=== PATIENT | female | born 1965 | race Caucasian/White ===

== ENCOUNTER → 2016-10-07 | Outpatient (CLI) | payer BC ==
[~2016-10-07] MED LIST: ALEN1TAB3; ASPI-84; ASPI-983 PO; ASPI325T32 PO; ASPI325T4 PO; ATOR10TA PO; ATOR10TA66 PO; ATOR40TA70 PO; CALC600T25; CEPH-507 PO; CLOP75TA28 PO; CLOP75TA69 PO; CPR500T PO; CYCL10TA9 PO; DIPH25CA79 PO; DIPH25TA82 PO; EZET10TA5 PO; FEXO-14 PO; FEXO-46 PO; FISH1200; FLUT16SP22 NS; FRSM20T PO; FURO20TA4; FURO20TA4 PO; HCT25T; HYDR-3720 PO; HYDR1CAP2 PO; IMIP10TA3; ISOS30TA3 PO; KCL10CCR; KCL10CCR PO; LISI-556 PO; LISI5TAB14 PO; METH500T7 PO; METO-270 PO; MSL400TEC; MTP25TSR; MTP25TSR PO; NAPR-243 PO; NFBIOT1000 PO; NITR0.4T SL; OXYC-12 PO; PANT40TA3 PO; PNT40TEC PO; POLY255P PO; POTA10TA14 PO; SIMV40TA2; SULF1TAB38 PO; TOLTA4; WRF2.5T
[2016-10-07 16:51] LABS: BASOPHILS # (AUTO) 0.1 10^3/uL (0.0-0.1); BASOPHILS % (AUTO) 1 % (0-10); EOSINOPHILS # (AUTO) 0.2 10^3/uL (0.0-0.3); EOSINOPHILS % (AUTO) 2 % (0-10); LYMPHOCYTES # (AUTO) 3.4 X 10^3 (1.0-4.0); LYMPHOCYTES % (AUTO) 34 % (12-44); MEAN CORPUSCULAR HEMOGLOBIN 29 PG (25-34); MEAN CORPUSCULAR HGB CONC 34 G/DL (32-36); MEAN CORPUSCULAR VOLUME 86 FL (80-99); MEAN PLATELET VOLUME 9.8 FL (7.4-10.4); MONOCYTES # (AUTO) 0.8 X 10^3 (0.0-1.0); MONOCYTES % (AUTO) 8 % (0-12); NEUTROPHILS # (AUTO) 5.5 X 10^3 (1.8-7.8); NEUTROPHILS % (AUTO) 55 % (42-75); PLATELET COUNT 255 10^3/uL (130-400); RED BLOOD COUNT 5.22 10^6/uL (4.35-5.85); RED CELL DISTRIBUTION WIDTH 12.9 % (10.0-14.5)
[2016-10-07 17:08] LABS: ALANINE AMINOTRANSFERASE 20 U/L (0-55); ALBUMIN 4.4 G/DL (3.2-4.5); ANION GAP 11 MMOL/L (5-14); ASPARTATE AMINO TRANSFERASE 14 U/L (5-34); BILIRUBIN,TOTAL 0.9 MG/DL (0.1-1.0); BLOOD UREA NITROGEN 11 MG/DL (7-18); BUN/CREATININE RATIO 15; CALCIUM 9.6 MG/DL (8.5-10.1); CARBON DIOXIDE 25 MMOL/L (21-32); CHLORIDE 106 MMOL/L (98-107); CREATININE SERUM 0.72 MG/DL (0.60-1.30); GFR ESTIMATED > 60; GLUCOSE 102 MG/DL (70-105); SODIUM 142 MMOL/L (135-145); TOTAL PROTEIN 7.6 G/DL (6.4-8.2)
== END ==
LOC: LAB 16:32
PROVIDERS: ATTEND Family Medicine
DX: R07.9 Chest pain, unspecified (principal)
CPT/HCPCS: 36415; 80053; 84484; 85025; 93005

== ENCOUNTER → 2016-10-11 | Outpatient (CLI) | payer BC ==
--- NOTE | 2016-10-12 11:22 | ECHOCARDIOGRAPHY REPORT ---
PROCEDURE PHYSICIAN: NATHANIEL GORDILLO DATE OF PROCEDURE: 10/11/2016 TWO DIMENSIONAL ECHOCARDIOGRAM REPORT PRIMARY PHYSICIAN: OTHER PHYSICIAN: REFERRING PHYSICIAN: Dr. Alfaro ORDERING PHYSICIAN: INDICATION FOR THE PROCEDURE: Valvular heart disease, coronary artery disease MEASUREMENTS DERIVED VALUES LV DIAMETER (LAX) NORMALS NORMALS Diastolic 6.1 (3.6-5.2) Eject. Fract. 60% (60%+/-6%) Systolic (2.3-3.9) Diastolic Vol. % Shortening (0.22-0.42) Systolic Vol. Aortic Root IVS THICKNESS Diastolic 1. (0.6-1.1) LVPW THICKNESS Diastolic 1. (0.6-1.1) LA DIAMETER Systolic 4.1 (2.1-3.7) FINDINGS: 1. Technical quality is good. 2. The left ventricle is prominent. Slightly more prominent compared to the study of October 2015. Systolic function is preserved. Estimated ejection fraction 60%. 3. The left atrium is mildly dilated. No clot or thrombus were seen within the left atrium. 4. The right atrium and right ventricle are normal in size. No clot or thrombus were seen within the right side. 5. Mitral valve is normal in morphology with severe mitral regurgitation noted by color Doppler flow. No mitral valve prolapse. No mitral valve stenosis. 6. Aortic valve is trileaflet with normal opening and closing pattern. No significant aortic stenosis or regurgitation was seen. 7. Tricuspid valve is normal in morphology with mild tricuspid regurgitation noted by color Doppler flow. Doppler across tricuspid valve estimated pulmonary artery pressure of 28+ right atrial pressure. 8. Pulmonic valve is functioning normally. 9. No pericardial effusion. CONCLUSION: 1. Prominent left ventricle, slight deterioration compared to the study of October 2015 with preserved systolic function. Estimated ejection fraction 60%. 2. Mildly dilated left atrium. 3. Severe mitral regurgitation, mild tricuspid regurgitation. 4. Estimated pulmonary artery pressure of 35 mmHg. Job ID: [id number] Dictated Date: 10/11/2016 15:01:47 Elevators Inspector Date: 10/12/2016 11:15:39 / dave
== END ==
LOC: CARD 09:48
PROVIDERS: ATTEND Physician Assistant
DX: I35.1 Nonrheumatic aortic (valve) insufficiency (principal); I25.10 Atherosclerotic heart disease of native coronary artery without angina pectoris; I50.1 Left ventricular failure, unspecified; R07.89 Other chest pain
CPT/HCPCS: 93306

== ENCOUNTER 2016-10-12 07:06 | Day surgery (SDC) | payer BC ==
[~2016-10-12] VITALS: Ht 170.2 cm; Wt 79.8 kg
[2016-10-12] VITALS (9 sets, daily range): BP systolic 101–136; BP diastolic 67–89
[~2016-10-12 07:06] MED LIST changes: -ATOR40TA70 PO; -DIPH25CA79 PO; -EZET10TA5 PO; -NFBIOT1000 PO; -NITR0.4T SL
[2016-10-12] MEDS ORDERED: HEParin (CATH LAB) 2,000 ML IV ONE (07:13)
[2016-10-12] MEDS ORDERED: NS IV 1000 ML 1,000 ML ONE (07:13)
[2016-10-12] MEDS ORDERED: LIDOCAINE 1% INJ 20 ML (XYLOCAINE) VIAL ONE (07:13)
[2016-10-12] MEDS ORDERED: NS IV 1000 ML 1,000 ML IV SCH ×2 (07:45→08:49)
--- NOTE | 2016-10-12 07:50 | Diagnostic Imaging Report ---
INDICATION: Pre-heart catheter. Comparison with 10/12/2015. Findings: The lungs are well-aerated. There are no infiltrates or masses. The heart is not enlarged. No pulmonary edema. No pneumothorax or pleural effusion. IMPRESSION: Normal portable chest. Dictated by: Dictated on workstation # [id number]
[2016-10-12 07:51] LABS: BILIRUBIN,URINE NEGATIVE (NEGATIVE); KETONES,URINE NEGATIVE (NEGATIVE); LEUKOCYTE ESTERASE ,URINE 1+ (NEGATIVE); NITRITE,URINE NEGATIVE (NEGATIVE); PH,URINE 6 (5-9); PROTEIN,URINE NEGATIVE (NEGATIVE); UROBILINOGEN,URINE NORMAL (NORMAL)
[2016-10-12 07:52] LABS: MEAN PLATELET VOLUME 9.9 FL (7.4-10.4); RED BLOOD COUNT 4.96 10^6/uL (4.35-5.85); WHITE BLOOD COUNT 9.8 10^3/uL (4.3-11.0)
[2016-10-12] MEDS ORDERED: fentaNYL INJECTION 100 MCG/2 ML AMP ONE (07:55)
[2016-10-12] MEDS ORDERED: MIDAZOLAM 5 MG/5 ML (VERSED) VIAL ONE (07:55)
[2016-10-12] MEDS ORDERED: EZET10TA5 PO (08:00)
[2016-10-12] MEDS ORDERED: ATOR40TA70 PO (08:00)
[2016-10-12 08:02] LABS: INR 0.9 (0.8-1.4); PROTHROMBIN TIME PATIENT 12.1 SEC (12.2-14.7)
[2016-10-12 08:05] LABS: SQUAMOUS EPITHELIAL CELL,UR 0-2 /HPF; WBC,URINE 0-2 /HPF
[2016-10-12] MEDS ORDERED: NITR0.4T SL (08:05)
[2016-10-12] MEDS ORDERED: NFBIOT1000 PO (08:05)
[2016-10-12] MEDS ORDERED: DIPH25CA79 PO (08:05)
[2016-10-12] MEDS ORDERED: ASPI-983 PO (08:05)
--- NOTE | 2016-10-12 08:05 | Cardiac Procedure Note-CS/ASA ---
Pre-Procedure Note Pre-Op Procedure Note H&P Reviewed The H&P was reviewed, patient examined and no changes noted. Date H&P Reviewed: Oct 12, 2016 Time H&P Reviewed: 08:04 Conscious Sedation Pre-Proced Time Reviewed: 08:04 ASA Class: 3 Airway Mallampati Classification: (tetlin appropriate class) I. II. III, IV Lungs Heart ASA score ASA 1: a normal healthy patient ASA 2: a patient with a mild systemic disease (mid diabetes, controlled hypertension, obesity x ASA 3: a patient with a severe systemic disease that limits activity (angina , COPD, prior Myocardial infarction) ASA 4: a patient with an incapacitating disease that is a constant threat to life (CHF, renal failure) ASA 5: a moribund patient not expected to survive 24 hrs. (ruptured aneurysm) ASA 6: a declared brain patient whose organs are being harvested. For emergent operations, add the letter E after the classification Grade 3 Sedation Plan: Analgesia, Amnesia, Plan communicated to team members, Discussed options with patient/fam, Discussed risks with patient/fam Note The patient is an appropriate candidate to undergo the planned procedure, sedation, and anesthesia. The patient immediately re-assessed prior to indication. NATHANIEL GORDILLO MD Oct 12, 2016 08:05
[2016-10-12 08:09] LABS: ALANINE AMINOTRANSFERASE 21 U/L (0-55); ALBUMIN 4.2 G/DL (3.2-4.5); ANION GAP 8 MMOL/L (5-14); ASPARTATE AMINO TRANSFERASE 13 U/L (5-34); BILIRUBIN,TOTAL 0.6 MG/DL (0.1-1.0); BLOOD UREA NITROGEN 15 MG/DL (7-18); BUN/CREATININE RATIO 20; CALCIUM 9.2 MG/DL (8.5-10.1); CARBON DIOXIDE 26 MMOL/L (21-32); CHLORIDE 108 MMOL/L (98-107); CHOLESTEROL 179 MG/DL (< 200); CREATININE SERUM 0.75 MG/DL (0.60-1.30); DIRECT LDL 119 MG/DL (1-129); GFR ESTIMATED > 60; GLUCOSE 164 MG/DL (70-105); POTASSIUM 4.2 MMOL/L (3.6-5.0); SODIUM 142 MMOL/L (135-145); TRIGLYCERIDES 107 MG/DL (<150); VLDL CHOLESTEROL 21 MG/DL (5-40)
--- NOTE | 2016-10-12 08:51 | Discharge Inst-Post CATH ---
Discharge Inst-CATH Post Cardiac Cath D/C Inst Follow Up/Plan Appointment with Dr Barksdale's office in 2-4 weeks CARDIAC CATH DISCHARGE INSTRUCTIONS *Hold Metformin for 48 hours post heart cath. ACTIVITY * Go Home directly and rest. * Limit activity of the leg (or wrist if it was used) for 7 days including aerobics, swimming, jogging, bicycling, etc. * Restrict stair-climbing for 7 days if possible, if not, climb up with your non -cath leg, then bring together on the same step. * Avoid lifting, pushing, pulling or excessive movement of the affected extremity for 7 days. * Customary sexual activity may be resumed after 2 days-use caution not to use a position that strains or causes pain to the affected extremity. * No driving for 24 hours. * NO SMOKING. * Avoid straining for bowel movements for 7 days. * Gentle walking on level ground is allowed. * Returning to work will depend on the type of procedure and the results. Your doctor will discuss this with you. CALL YOUR DOCTOR FOR ANY OF THE FOLLOWING: *If bleeding from the puncture site occurs- Apply gentle pressure to site with clean cloth and call your doctor or EMS. * If a knot or lump forms under the skin, increases in size, or causes pain. * If bruising appears to be worsening or moving further down your leg instead of disappearing. * Temperature above 101 F. CARE OF YOUR GROIN INCISION; * Bruising or purple discoloration of the skin near the puncture site is common. * You may shower only, no bathtub bathing for 5 days. Be careful to avoid slipping as your leg may feel stiff. * If a closure device was used on your femoral artery, please see the attached guide regarding care of the device and your leg. * REMOVE the dressing from your groin the next day after your procedure in the shower. CARE OF YOUR WRIST INCISION; * Bruising or purple discoloration of the skin near the puncture site is common. * You may shower. * DO NOT submerge wrist. * Remove dressing in 24 hours. NATHANIEL BARKSDALE MD Oct 12, 2016 08:51
[2016-10-12] MEDS ORDERED: PATIENT MAY USE OWN MEDS, ALL PO SCH (09:00)
--- NOTE | 2016-10-13 10:02 | CARDIAC CATHETERIZATION ---
DATE OF SERVICE: 10/12/2016 CARDIAC CATHETERIZATION BRIEF HISTORY: The patient is a 51-year-old lady with a history of coronary artery disease, had complex intervention with 2 stents to the right coronary artery in the past. The patient has become more symptomatic, having significant recurrent chest pain, she was scheduled for left heart catheterization and possible PTCA. PROCEDURE NOTE: After explaining the procedure to the patient, all pros and cons were explained, all questions were answered. The patient signed the consent and then she was placed on the cardiac catheterization laboratory. Right groin was prepped in a sterile fashion. Local anesthesia applied to the right groin. A 6-Faroese sheath was placed in the right femoral artery. Combination of right and left Aretha catheter were used to access the right and left coronary system. Multiple views were obtained. Pigtail catheter advanced to the left ventricular cavity. Pressure was measured, left ventriculogram was done. Pull back LV to aorta was done. Aortic arch angiogram was done. At the end of the procedure, sheath was removed, MYNX device deployed, hemostasis achieved. FINDINGS: Hemodynamics: LV pressure 114/15, end diastolic pressure of 15, aortic pressure 108/61, mean of 82 with no significant gradient across the aortic valve. TOTAL CONTRAST USED: 75 mL TOTAL RADIATION: 161 mGy ANATOMY: 1. Left main coronary artery is bifurcating to left anterior descending and left circumflex artery with no obstructive disease. 2. Left anterior descending artery is slightly tortuous artery with mild to moderate disease in the mid LAD, nonobstructive disease. 3. Left circumflex artery is a nondominant artery with mild tortuosity, no significant obstructive disease. 4. Right coronary artery has 2 stents, known to be proximal 3.5 stent and distal 2.5 stent. In the mid portion of the right coronary artery, there is any area of 50 to 60% stenosis, appeared to be nonobstructive disease at this point. Small vessel disease distally. 5. Left ventriculogram was done in the right anterior oblique position. The ventricle is normal in size with normal contractility, estimated ejection fraction 60%. 7. Aortic arch angiogram appeared to be normal in size, hypertensive changes were noted. Origin of the great neck vessels including right innominate artery, left carotid artery and left subclavian arteries appeared normal. IN CONCLUSION: 1. Patient stent in the proximal and distal right coronary artery with an area of 50 to 60% stenosis in the mid right coronary artery, not covered with the stent area. Appeared to be nonobstructive disease at this point. Small vessel disease distally. 2. Tortuous left coronary artery system with nonobstructive disease. 3. Normal left ventricular size and systolic function, estimated ejection fraction 60%. 4. Normal aortic arch and grade neck vessels. DISCUSSION AND RECOMMENDATION: The patient's chest pain is probably due to small vessel disease, coronary artery disease, medical therapy is recommended, no intervention is warranted. FINAL DIAGNOSES: 1. Chest pain. 2. Coronary artery disease. 3. Hypertension. 4. Hyperlipidemia. Job ID: [id number] DocumentID: [id number] Dictated Date: 10/12/2016 08:54:33 Pockets And Pieces Necktie Operator Date: 10/12/2016 09:43:36 Dictated By: NATHANIEL GORDILLO MD
== END 2016-10-12 13:50 | disposition home or self-care (01) ==
LOC: CATH 07:06 → SURG 09:00 → ENPENDDIS 13:30 → CATH 13:50
PROVIDERS: ATTEND Internal Medicine Cardiovascular Disease
DX: R07.89 Other chest pain (principal); I25.10 Atherosclerotic heart disease of native coronary artery without angina pectoris; I10 Essential (primary) hypertension; E78.5 Hyperlipidemia, unspecified; I50.9 Heart failure, unspecified; I08.0 Rheumatic disorders of both mitral and aortic valves; Z72.0 Tobacco use; Z79.899 Other long term (current) drug therapy; Z79.02 Long term (current) use of antithrombotics/antiplatelets; Z95.5 Presence of coronary angioplasty implant and graft
CPT/HCPCS: 36221; 36415; 71010; 80053; 80061; 81000; 85027; 85610; 85730; 87081; 87088; 93458

== ENCOUNTER → 2018-04-13 | Outpatient (CLI) | payer BC ==
[~2018-04-13] MED LIST changes: +ATOR40TA70 PO; +DIPH25CA79 PO; +EZET10TA5 PO; -METO-270 PO; +METO-387 PO; +NFBIOT1000 PO; +NITR0.4T SL
== END ==
LOC: CARD 13:24
PROVIDERS: ATTEND Internal Medicine Cardiovascular Disease
DX: I25.10 Atherosclerotic heart disease of native coronary artery without angina pectoris (principal); R07.89 Other chest pain; R06.09 Other forms of dyspnea; I08.3 Combined rheumatic disorders of mitral, aortic and tricuspid valves
CPT/HCPCS: 93306

== ENCOUNTER 2020-07-29 16:33 | Emergency (ER) | payer SELFPAY ==
[~2020-07-29] VITALS: Ht 165 cm; Wt 77.0 kg
[~2020-07-29 16:33] MED LIST changes: +ASPI-1238 PO; -ASPI-983 PO; +EZET10TA17 PO; -EZET10TA5 PO; -METO-387 PO; -PANT40TA3 PO; +PANT40TA52 PO; -POLY255P PO; +POLY255P16 PO
--- NOTE | 2020-07-29 16:53 | ED Cough/URI ---
General Stated Complaint: SOB, HEADACHE, CHEST PRESSURE Source: patient Exam Limitations: no limitations History of Present Illness Date Seen by Provider: Jul 29, 2020 Time Seen by Provider: 16:52 Initial Comments To ER with left-sided chest pain that is very sharp and worse with taking a deep breath, shortness of breath for 1 week. Infrequent cough. No fever no chills. Drainage from her right ear. A sore in the left side of her nose. Timing/Duration: constant Severity/Quality: moderate Associated Symptoms: shortness of breath Allergies and Home Medications Allergies Coded Allergies: No Known Drug Allergies (Verified , 10/22/08) Home Medications Aspirin 81 Mg Tablet.dr, 81 MG PO HS, (Reported) Atorvastatin Calcium 40 Mg Tablet, 40 MG PO HS, (Reported) Biotin 1,000 Mcg Tablet, 2,000 MCG PO HS, (Reported) Clopidogrel Bisulfate 75 Mg Tablet, 75 MG PO HS, (Reported) Diphenhydramine HCl 25 Mg Capsule, 25 MG PO HS, (Reported) Furosemide 20 Mg Tablet, 20 MG PO DAILY PRN for SWELLING, (Reported) Lisinopril 5 Mg Tablet, 5 MG PO HS, (Reported) Metoprolol Succinate 25 Mg Tab.er.24h, 25 MG PO HS, (Reported) Nitroglycerin 0.4 Mg Tab.subl, 0.4 MG SL UD PRN for CHEST PAIN, (Reported) Pantoprazole Sodium 40 Mg Tablet.dr, 40 MG PO HS, (Reported) Potassium Chloride 10 Meq Tab.er.prt, 10 MEQ PO DAILY PRN for WHEN TAKING FUROSEMIDE, (Reported) Patient Home Medication List Home Medication List Reviewed: Yes Review of Systems Review of Systems Constitutional: see HPI EENTM: see HPI, ear pain Respiratory: see HPI Cardiovascular: no symptoms reported Genitourinary: no symptoms reported Musculoskeletal: no symptoms reported Skin: no symptoms reported Psychiatric/Neurological: No Symptoms Reported Hematologic/Lymphatic: No Symptoms Reported Past Xthwlha-Cwcmmm-Zwavfv Hx Patient Social History Type Used: Cigarettes 2nd Hand Smoke Exposure: Yes Immunizations Up To Date Tetanus Booster (TDap): Less than 5yrs PED Vaccines UTD: Yes Date of Pneumonia Vaccine: Apr 06, 2011 Date of Influenza Vaccine: Apr 05, 2010 Seasonal Allergies Seasonal Allergies: No Past Medical History Coronary Stent, Hysterectomy, Orthopedic Pneumonia Coronary Artery Disease, Heart Attack, Hypertension, Valvular Heart Disease Reproductive Disorders: Yes (HYSTERECTOMY) 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 0.0oz. 79.769281do; 27.6 BMI Method:Stated General Appearance: WD/WN, no apparent distress Eyes: Bilateral Eye Normal Inspection, Bilateral Eye PERRL, Bilateral Eye EOMI HEENT: TM abnormal (R) Neck: non-tender, full range of motion Respiratory: no respiratory distress, no accessory muscle use, decreased breath sounds, wheezing Cardiovascular: regular rate, rhythm, systolic murmur Gastrointestinal: normal bowel sounds, non tender, soft Extremities: normal range of motion, non-tender Neurologic/Psychiatric: alert, normal mood/affect, oriented x 3 Skin: normal color, warm/dry Progress/Results/Core Measures Suspected Sepsis SIRS Temperature: Pulse: Respiratory Rate: Laboratory Tests 07/29/20 16:58: White Blood Count 8.9 Blood Pressure / Mean: Laboratory Tests 07/29/20 16:58: Creatinine 0.89, Platelet Count 265, Total Bilirubin 0.3 Results/Orders Lab Results Laboratory Tests Test 07/29/20 16:50 07/29/20 16:58 07/29/20 17:10 Range/Units Coronavirus 2019 (KAT) Negative Negative White Blood Count 8.9 4.3-11.0 10^3/uL Red Blood Count 5.30 H 3.80-5.11 10^6/uL Hemoglobin 15.3 11.5-16.0 g/dL Hematocrit 46 35-52 % Mean Corpuscular Volume 86 80-99 fL Mean Corpuscular Hemoglobin 29 25-34 pg Mean Corpuscular Hemoglobin Concent 33 32-36 g/dL Red Cell Distribution Width 12.8 10.0-14.5 % Platelet Count 265 130-400 10^3/uL Mean Platelet Volume 9.8 9.0-12.2 fL Immature Granulocyte % (Auto) 0 % Neutrophils (%) (Auto) 55 42-75 % Lymphocytes (%) (Auto) 35 12-44 % Monocytes (%) (Auto) 7 0-12 % Eosinophils (%) (Auto) 2 0-10 % Basophils (%) (Auto) 1 0-10 % Neutrophils # (Auto) 4.9 1.8-7.8 10^3/uL Lymphocytes # (Auto) 3.1 1.0-4.0 10^3/uL Monocytes # (Auto) 0.6 0.0-1.0 10^3/uL Eosinophils # (Auto) 0.2 0.0-0.3 10^3/uL Basophils # (Auto) 0.1 0.0-0.1 10^3/uL Immature Granulocyte # (Auto) 0.0 0.0-0.1 10^3/uL Sodium Level 140 135-145 MMOL/L Potassium Level 3.8 3.6-5.0 MMOL/L Chloride Level 104 98-107 MMOL/L Carbon Dioxide Level 26 21-32 MMOL/L Anion Gap 10 5-14 MMOL/L Blood Urea Nitrogen 14 7-18 MG/DL Creatinine 0.89 0.60-1.30 MG/DL Estimat Glomerular Filtration Rate > 60 BUN/Creatinine Ratio 16 Glucose Level 161 H 70-105 MG/DL Calcium Level 9.3 8.5-10.1 MG/DL Corrected Calcium 9.1 8.5-10.1 MG/DL Total Bilirubin 0.3 0.1-1.0 MG/DL Aspartate Amino Transf (AST/SGOT) 11 5-34 U/L Alanine Aminotransferase (ALT/SGPT) 10 0-55 U/L Alkaline Phosphatase 78 40-136 U/L Troponin I < 0.028 <0.028 NG/ML C-Reactive Protein High Sensitivity 0.20 0.00-0.50 MG/DL Total Protein 7.5 6.4-8.2 GM/DL Albumin 4.2 3.2-4.5 GM/DL My Orders Orders - NATHAN DOLL UNDER TRIMMER Cbc With Automated Diff (07/29/20 16:50) Comprehensive Metabolic Panel (07/29/20 16:50) Hs C Reactive Protein (07/29/20 16:50) Troponin I (07/29/20 16:50) Ekg Tracing (07/29/20 16:50) Chest 1 View, Ap/Pa Only (07/29/20 16:50) Covid 19 Inhouse Test (07/29/20 16:50) Fibrin Degradation Products (07/29/20 16:50) Albuterol Inhaler (Ventolin Hfa) (07/29/20 18:00) Vital Signs/I&O 07/29/20 17:01 Temp 36.4 Pulse 95 Resp 18 B/P (MAP) 168/88 (114) Capillary Refill : Departure Impression Primary Impression: Dyspnea Disposition: HOME, SELF-CARE Condition: Stable Departure-Patient Inst. Decision time for Depature: 17:31 Referrals: POP GUAN MD (PCP/Family) Primary Care Physician Patient Instructions: Shortness of Breath (Dyspnea) Add. Discharge Instructions: 1. Steroids as directed. Use 2 puffs of the inhaler every 4 hours as needed. Return to ER for any concerns. Follow-up with your doctor next week. Scripts Prednisone (Prednisone) 20 Mg Tab 40 MG PO DAILY, #8 TAB 0 Refills Prov: NATHAN DOLL APRN 07/29/20 Copy Copies To 1: POP GUAN MD, PETER J APRN Jul 29, 2020 16:53
[2020-07-29 17:01] LABS: BASOPHILS # (AUTO) 0.1 10^3/uL (0.0-0.1); BASOPHILS % (AUTO) 1 % (0-10); EOSINOPHILS # (AUTO) 0.2 10^3/uL (0.0-0.3); EOSINOPHILS % (AUTO) 2 % (0-10); HEMATOCRIT 46 % (35-52); HEMOGLOBIN 15.3 g/dL (11.5-16.0); LYMPHOCYTES # (AUTO) 3.1 10^3/uL (1.0-4.0); LYMPHOCYTES % (AUTO) 35 % (12-44); MEAN CORPUSCULAR HEMOGLOBIN 29 pg (25-34); MEAN CORPUSCULAR HGB CONC 33 g/dL (32-36); MEAN CORPUSCULAR VOLUME 86 fL (80-99); MEAN PLATELET VOLUME 9.8 fL (9.0-12.2); MONOCYTES # (AUTO) 0.6 10^3/uL (0.0-1.0); MONOCYTES % (AUTO) 7 % (0-12); NEUTROPHILS # (AUTO) 4.9 10^3/uL (1.8-7.8); NEUTROPHILS % (AUTO) 55 % (42-75); PLATELET COUNT 265 10^3/uL (130-400); WHITE BLOOD COUNT 8.9 10^3/uL (4.3-11.0)
[2020-07-29 17:16] LABS: ALBUMIN 4.2 GM/DL (3.2-4.5); CHLORIDE 104 MMOL/L (98-107); POTASSIUM 3.8 MMOL/L (3.6-5.0); SODIUM 140 MMOL/L (135-145)
[2020-07-29 17:17] LABS: CALCIUM 9.3 MG/DL (8.5-10.1)
[2020-07-29 17:19] LABS: GLUCOSE 161 MG/DL (70-105); TOTAL PROTEIN 7.5 GM/DL (6.4-8.2)
[2020-07-29 17:20] LABS: CARBON DIOXIDE 26 MMOL/L (21-32)
[2020-07-29 17:21] LABS: BILIRUBIN,TOTAL 0.3 MG/DL (0.1-1.0)
[2020-07-29 17:22] LABS: ALKALINE PHOSPHATASE 78 U/L (40-136); CREATININE SERUM 0.89 MG/DL (0.60-1.30); GFR ESTIMATED > 60
[2020-07-29 17:24] LABS: BUN/CREATININE RATIO 16
[2020-07-29 17:25] LABS: ALANINE AMINOTRANSFERASE 10 U/L (0-55)
--- NOTE | 2020-07-29 17:25 | Diagnostic Imaging Report ---
EXAMINATION: Chest 1 view. HISTORY: Chest pain. COMPARISON: 10/12/2016. FINDINGS: The lung volumes are normal. No focal consolidation is seen. No large pleural effusion or pneumothorax is seen. The cardiomediastinal silhouette is normal in size and contour. No acute osseous abnormality is seen. IMPRESSION: No acute pleuroparenchymal process. Dictated by: Dictated on workstation # [id number]
[2020-07-29] MEDS ORDERED: PRD20T PO (17:34)
[2020-07-29 17:45] VITALS: BP 165/85
[2020-07-29] MEDS ORDERED: RT-ALBUTEROL INHALER HFA (VENTOLIN HFA) 18 GM IH SCH (18:00)
== END 2020-07-29 17:50 | disposition home or self-care (01) ==
LOC: EDUNIT# 16:33 → ER 16:37
DX: R06.02 Shortness of breath (principal); R07.9 Chest pain, unspecified; R05 Cough; H92.11 Otorrhea, right ear; I11.0 Hypertensive heart disease with heart failure; I50.9 Heart failure, unspecified; I25.10 Atherosclerotic heart disease of native coronary artery without angina pectoris; Z77.22 Contact with and (suspected) exposure to environmental tobacco smoke (acute) (chronic); Z79.82 Long term (current) use of aspirin; Z95.5 Presence of coronary angioplasty implant and graft; Z20.822 Contact with and (suspected) exposure to COVID-19
CPT/HCPCS: 71045; 80053; 84484; 85025; 86141; U0002; 36415; 87635; 93005

== ENCOUNTER 2020-10-18 02:17 | Inpatient (IN) | payer OTHER ==
[~2020-10-18] VITALS: Ht 170.1 cm; Wt 69.6 kg
[~2020-10-18 02:17] MED LIST changes: -ISOS30TA3 PO; +ISOS30TA82 PO; -LISI-556 PO; +LISI-729 PO; +PRD20T PO
[2020-10-18] MEDS ORDERED: NITROGLYCERIN 2% OINT 1 GM UNIT DOSE PACKET ONE (02:22)
[2020-10-18] MEDS ORDERED: morphine INJ 10 MG/ML 1ML (SYR OR VIAL) IV STA (02:24)
[2020-10-18] MEDS ORDERED: NITROGLYCERIN 2% OINT 1 GM UNIT DOSE PACKET TOP ONE (02:30)
[2020-10-18] MEDS ORDERED: ONDANSETRON 4 MG/2 ML (SDV) Z0FRAN IVP ONE (02:30)
[2020-10-18] MEDS ORDERED: HEParin 1000 UNIT/ML (10ML VIAL) FOR BOLUS ONE ×2 (02:33→02:48)
[2020-10-18] MEDS ORDERED: HEParin DRIP 25000 UNIT/500ML 0 ML IV ONE (02:33)
[2020-10-18 02:35] LABS: BASOPHILS # (AUTO) 0.1 10^3/uL (0.0-0.1); BASOPHILS % (AUTO) 1 % (0-10); EOSINOPHILS % (AUTO) 0 % (0-10); HEMATOCRIT 48 % (35-52); HEMOGLOBIN 15.7 g/dL (11.5-16.0); LYMPHOCYTES % (AUTO) 13 % (12-44); MEAN CORPUSCULAR HEMOGLOBIN 29 pg (25-34); MEAN CORPUSCULAR HGB CONC 33 g/dL (32-36); MEAN CORPUSCULAR VOLUME 87 fL (80-99); MEAN PLATELET VOLUME 10.1 fL (9.0-12.2); MONOCYTES # (AUTO) 0.8 10^3/uL (0.0-1.0); MONOCYTES % (AUTO) 4 % (0-12); NEUTROPHILS # (AUTO) 18.2 10^3/uL (1.8-7.8); NEUTROPHILS % (AUTO) 82 % (42-75); PLATELET COUNT 334 10^3/uL (130-400); WHITE BLOOD COUNT 22.3 10^3/uL (4.3-11.0)
[2020-10-18] MEDS ORDERED: CLOPIDOGREL 300 MG (PLAVIX) TABLET PO ONE ×2 (02:36→04:17)
[2020-10-18 02:45] LABS: PROTHROMBIN TIME PATIENT 13.5 SEC (12.2-14.7)
[2020-10-18] MEDS ORDERED: NS IV 1000 ML 1,000 ML ONE (02:48)
[2020-10-18] MEDS ORDERED: HEParin (CATH LAB) 2,000 ML IV ONE (02:48)
[2020-10-18] MEDS ORDERED: LIDOCAINE 1% INJ 20 ML 20 ML VIAL ONE (02:48)
[2020-10-18] MEDS ORDERED: MIDAZOLAM 5 MG/5 ML (VERSED) VIAL ONE (02:48)
[2020-10-18] MEDS ORDERED: fentaNYL INJ 100 MCG/2 ML AMP ONE (02:48)
[2020-10-18] MEDS ORDERED: NITRO DRIP 25000 MCG/D5W 250 ML IV ONE (02:48)
[2020-10-18 02:54] LABS: LYMPHOCYTES % (MANUAL) 18 %; MONOCYTES % (MANUAL) 2 %; NEUTROPHILS % (MANUAL) 80 %; RBC MORPH NORMAL
[2020-10-18 02:56] LABS: ALANINE AMINOTRANSFERASE 16 U/L (0-55); ALBUMIN 4.4 GM/DL (3.2-4.5); ALKALINE PHOSPHATASE 89 U/L (40-136); AMYLASE 56 U/L (25-125); BILIRUBIN,TOTAL 0.6 MG/DL (0.1-1.0); BUN/CREATININE RATIO 11; CALCIUM 9.7 MG/DL (8.5-10.1); CARBON DIOXIDE 19 MMOL/L (21-32); CHLORIDE 100 MMOL/L (98-107); CREATINE KINASE 64 U/L (29-168); CREATININE SERUM 0.75 MG/DL (0.60-1.30); GFR ESTIMATED > 60; GLUCOSE 252 MG/DL (70-105); LIPASE 15 U/L (8-78); MAGNESIUM 1.8 MG/DL (1.6-2.4); POTASSIUM 3.7 MMOL/L (3.6-5.0); SODIUM 136 MMOL/L (135-145)
[2020-10-18 02:57] VITALS: BP 153/89
[2020-10-18 03:02] LABS: CREATINE KINASE MB 1.1 NG/ML (<6.6)
[2020-10-18] MEDS ORDERED: EPTIFIBATIDE BOLUS 20 ML IV ONE (03:04)
--- NOTE | 2020-10-18 03:08 | ED Chest Pain ---
General Chief Complaint: Chest Pain Stated Complaint: STEMI Source: patient, EMS History of Present Illness Date Seen by Provider: Oct 18, 2020 Time Seen by Provider: 02:18 Initial Comments PT ARRIVES VIA EMS FROM HOME EMS FAXED EKG SHOWING ACUTE INFERIOR STEMI 021--DR. FONTANA CONTACTED AND PEDIATRIC DIETICIAN TEAM CONTACTED EMS GAVE 4 BABY ASPIRIN, 1/2" NITROPASTE, AND MORPHINE 4 MG BP FOR EMS WAS 170'S/90'S PT TOOK 3 OLD NTG SL TABS ALL AT THE SAME TIME WITHOUT RELIEF--VERY OLD RX FROM 2014 OR 2016 C/O MID CHEST PAIN RADIATING THROUGH TO BACK, AND DOWN LEFT ARM C/O NUMBNESS IN LEFT ARM PAIN BEGAN AROUND 0100 WHILE SITTING--HAD NOT BEEN ASLEEP YET C/O SLIGHT SHORTNESS OF BREATH + NAUSEA, NO VOMITING NO SWEATS, BUT IS CLAMMY NO SWELLING IN LEGS/ FEET PT STATES SHE HAS HAD AN HI IN THE PAST, "BUT I DIDN'T KNOW IT" HAD [address] [place] [address] WILKERSON AT [facility] FOR COMPLETELY OCCLUDED RCA. LAST CARDIAC CATH DONE HERE 09/[address] GORDILLO SHOWED PATENT STENTS TO RCA, WITH MODERATE DISEASE IN OTHER VESSELS, EF 60% AT THAT TIME, AND NO INTERVENTION DONE HAS CHF, WITH CARDIOMYOPATHY WITH EF LOW 30% AND SEVERE MITRAL REGURGITATION PT STATES SHE NEVER FOLLOWED UP WITH ANYONE AFTER HER LAST CARDIAC CATH, AND QUIT TAKING ALL OF HER MEDICATIONS AROUND THAT SAME TIME. PT CONTINUES TO SMOKE 1 PPD PCP: WAS ESTABLISHED WITH DR. GUAN, BUT HAS NOT FOLLOWED UP WITH HER FOR LONG TIME DID NOT FOLLOW UP WITH CARDIOLOGY/DR. GORDILLO Allergies and Home Medications Allergies Coded Allergies: No Known Drug Allergies (Verified , 10/22/08) Home Medications Aspirin 81 Mg Tablet.dr, 81 MG PO HS, (Reported) Atorvastatin Calcium 40 Mg Tablet, 40 MG PO HS, (Reported) Biotin 1,000 Mcg Tablet, 2,000 MCG PO HS, (Reported) Clopidogrel Bisulfate 75 Mg Tablet, 75 MG PO HS, (Reported) Diphenhydramine HCl 25 Mg Capsule, 25 MG PO HS, (Reported) Furosemide 20 Mg Tablet, 20 MG PO DAILY PRN for SWELLING, (Reported) Lisinopril 5 Mg Tablet, 5 MG PO HS, (Reported) Metoprolol Succinate 25 Mg Tab.er.24h, 25 MG PO HS, (Reported) Nitroglycerin 0.4 Mg Tab.subl, 0.4 MG SL UD PRN for CHEST PAIN, (Reported) Pantoprazole Sodium 40 Mg Tablet.dr, 40 MG PO HS, (Reported) Potassium Chloride 10 Meq Tab.er.prt, 10 MEQ PO DAILY PRN for WHEN TAKING FUROSEMIDE, (Reported) Prednisone 20 Mg Tab, 40 MG PO DAILY Prescribed by: NATHAN DOLL on 07/29/20 1306 Patient Home Medication List Home Medication List Reviewed: Yes Review of Systems Review of Systems Constitutional: see HPI, diaphoresis EENTM: No Symptoms Reported Respiratory: See HPI, Shortness of Air Cardiovascular: See HPI, Chest Pain; Denies Edema, Denies Lightheadedness, Denies Palpitations, Denies Syncope Gastrointestinal: See HPI; Denies Abdominal Pain; Nausea Musculoskeletal: see HPI Skin: no symptoms reported Psychiatric/Neurological: See HPI, Anxiety, Numbness, Tingling; Denies Weakness Endocrine: No Symptoms Reported Hematologic/Lymphatic: No Symptoms Reported Past Yejdytr-Adfyad-Mggumn Hx Past Med/Social Hx: Reviewed and Corrections made Patient Social History Alcohol Use: Denies Use Drug of Choice: DENIES Smoking Status: Current Everyday Smoker (1 PPD) Type Used: Cigarettes 2nd Hand Smoke Exposure: Yes Recent Hopitalizations: Yes Immunizations Up To Date Tetanus Booster (TDap): Less than 5yrs PED Vaccines UTD: Yes Date of Pneumonia Vaccine: Apr 06, 2011 Date of Influenza Vaccine: Apr 05, 2010 Seasonal Allergies Seasonal Allergies: No Past Medical History Surgeries: Yes (R ANKLE FX/DISLOCATION WITH ORIF 09/2010; CARDIAC CATHS-STENTS X 2) Coronary Stent, Hysterectomy, Oophorectomy, Orthopedic Respiratory: Yes Pneumonia Cardiac: Yes (SEVERE MITRAL REGURG. 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: Hysterectomy Sexually Transmitted Disease: No HIV/AIDS: No Gastrointestinal: No Musculoskeletal: Yes (RIGHT ANKLE FX/DISLOCATION WITH ORIF 09/2010) Fractures Endocrine: Yes Diabetes, Non-Insulin dep HEENT: No Cancer: No Psychosocial: No Integumentary: No Blood Disorders: Yes (HX BLOOD CLOTS) Adverse Reaction/Blood Tranf: No Family Medical History Diabetes mellitus 19 FATHER 19 MOTHER FH: HTN (hypertension) 19 FATHER 19 MOTHER FH: atrial fibrillation 19 FATHER FH: heart attack 19 FATHER 19 MOTHER FH: renal failure 19 FATHER FHx: chronic obstructive pulmonary disease 19 FATHER Heart Disease, Diabetes, Hypertension, Renal Disease SOCIAL HISTORY: -ETOH-DENIES USE -DRUGS-DENIES USE -SMOKES 1 PPD LONG HISTORY OF NON-COMPLIANCE IN ALL ASPECTS OF CARE Physical Exam Vital Signs Vital Signs - First Documented 10/18/20 02:20 O2 Delivery Room Air Capillary Refill : Less Than 3 Seconds Height, Weight, BMI Height: 5'7.00" Weight: 176lbs. 0.0oz. 79.628257np; 28.00 BMI Method:Stated General Appearance: WD/WN, Anxious, Other (MOANING, YELLING REPEATEDLY "IT HURTS, IT HURTS" AND PATTING HER LEFT UPPER CHEST) HEENT: PERRL/EOMI Neck: Full Range of Motion, Normal Inspection, Non Tender, Supple; No Carotid Bruit, No JVD Respiratory: Chest Non Tender, Normal Breath Sounds, No Accessory Muscle Use, No Respiratory Distress Cardiovascular: Regular Rate, Rhythm, No Edema, No JVD, No Murmur, Normal Peripheral Pulses Gastrointestinal: Normal Bowel Sounds, No Pulsatile Mass, Non Tender, Soft Extremity: Normal Capillary Refill, Normal Inspection, Normal Range of Motion, Non Tender, No Calf Tenderness, No Pedal Edema Neurologic/Psychiatric: Alert, Oriented x3, No Motor/Sensory Deficits, bridge opener II- XII Norm as Tested Skin: Normal Color, Warm/Dry; No Diaphoresis, No Rash Critical Care Note Critical Care Start Time: 02:18 Total Time (minutes) 30 Progress/Results/Core Measures Results/Orders Lab Results Laboratory Tests Test 10/18/20 02:24 Range/Units White Blood Count 22.3 H 4.3-11.0 10^3/uL Red Blood Count 5.44 H 3.80-5.11 10^6/uL Hemoglobin 15.7 11.5-16.0 g/dL Hematocrit 48 35-52 % Mean Corpuscular Volume 87 80-99 fL Mean Corpuscular Hemoglobin 29 25-34 pg Mean Corpuscular Hemoglobin Concent 33 32-36 g/dL Red Cell Distribution Width 12.8 10.0-14.5 % Platelet Count 334 130-400 10^3/uL Mean Platelet Volume 10.1 9.0-12.2 fL Immature Granulocyte % (Auto) 1 % Neutrophils (%) (Auto) 82 H 42-75 % Lymphocytes (%) (Auto) 13 12-44 % Monocytes (%) (Auto) 4 0-12 % Eosinophils (%) (Auto) 0 0-10 % Basophils (%) (Auto) 1 0-10 % Neutrophils # (Auto) 18.2 H 1.8-7.8 10^3/uL Lymphocytes # (Auto) 3.0 1.0-4.0 10^3/uL Monocytes # (Auto) 0.8 0.0-1.0 10^3/uL Eosinophils # (Auto) 0.0 0.0-0.3 10^3/uL Basophils # (Auto) 0.1 0.0-0.1 10^3/uL Immature Granulocyte # (Auto) 0.1 0.0-0.1 10^3/uL Neutrophils % (Manual) 80 % Lymphocytes % (Manual) 18 % Monocytes % (Manual) 2 % Blood Morphology Comment NORMAL Prothrombin Time 13.5 12.2-14.7 SEC INR Comment 1.0 0.8-1.4 Activated Partial Thromboplast Time 23 L 24-35 SEC D-Dimer < 0.27 0.00-0.49 UG/ML Sodium Level 136 135-145 MMOL/L Potassium Level 3.7 3.6-5.0 MMOL/L Chloride Level 100 98-107 MMOL/L Carbon Dioxide Level 19 L 21-32 MMOL/L Anion Gap 17 H 5-14 MMOL/L Blood Urea Nitrogen 8 7-18 MG/DL Creatinine 0.75 0.60-1.30 MG/DL Estimat Glomerular Filtration Rate > 60 BUN/Creatinine Ratio 11 Glucose Level 252 H 70-105 MG/DL Calcium Level 9.7 8.5-10.1 MG/DL Corrected Calcium 9.4 8.5-10.1 MG/DL Magnesium Level 1.8 1.6-2.4 MG/DL Total Bilirubin 0.6 0.1-1.0 MG/DL Aspartate Amino Transf (AST/SGOT) 17 5-34 U/L Alanine Aminotransferase (ALT/SGPT) 16 0-55 U/L Alkaline Phosphatase 89 40-136 U/L Total Creatine Kinase 64 29-168 U/L Creatine Kinase MB 1.1 <6.6 NG/ML Myoglobin 29.2 10.0-92.0 NG/ML Troponin I < 0.028 <0.028 NG/ML B-Type Natriuretic Peptide 37.1 <100.0 PG/ML Total Protein 8.0 6.4-8.2 GM/DL Albumin 4.4 3.2-4.5 GM/DL Amylase Level 56 25-125 U/L Lipase 15 8-78 U/L My Orders Orders - ELVIA ARCHULETA DO Ed Iv/Invasive Line Start (10/18/20 02:24) Ekg Tracing (10/18/20 02:24) O2 (10/18/20 02:24) Monitor-Rhythm Ecg Trace Only (10/18/20 02:24) Cbc With Automated Diff (10/18/20 02:24) Magnesium (10/18/20 02:24) Chest 1 View, Ap/Pa Only (10/18/20 02:24) Ekg Tracing (10/18/20 02:24) Comprehensive Metabolic Panel (10/18/20 02:24) Myoglobin Serum (10/18/20 02:24) Protime With Inr (10/18/20 02:24) Partial Thromboplastin Time (10/18/20 02:24) O2 (10/18/20 02:24) Ed Iv/Invasive Line Start (10/18/20 02:24) Creatine Kinase (10/18/20 02:24) Creatine Kinase Mb (10/18/20 02:24) Lipase (10/18/20 02:24) Amylase (10/18/20 02:24) BNP (10/18/20 02:24) Fibrin Degradation Products (10/18/20 02:24) Troponin I (10/18/20 02:24) Morphine Injection (Morphine Injection (10/18/20 02:24) Ondansetron Injection (Zofran Injectio (10/18/20 02:30) Drug Screen Stat (Urine) (10/18/20 02:25) Nitroglycerin Ointment (Nitrobid Ointme (10/18/20 02:30) Nitroglycerin Ointment (Nitrobid Ointme (10/18/20 02:22) Manual Differential (10/18/20 02:24) Heparin (Bolus Per Protocol) (Heparin (B (10/18/20 02:33) Heparin Drip 35659 Unit/500ml (Heparin (10/18/20 02:33) Clopidogrel Tablet (Plavix Tablet) (10/18/20 02:36) Lidocaine 1% Inj 20 Ml (Xylocaine 1% Inj (10/18/20 02:48) Midazolam Injection (Versed Injection) (10/18/20 02:48) Fentanyl Inj (Sublimaze Injection) (10/18/20 02:48) Heparin (Bolus Per Protocol) (Heparin (B (10/18/20 02:48) Ns Iv 1000 Ml (Sodium Chloride 0.9%) (10/18/20 02:48) Nitro Drip 13365 Mcg/D5w (Nitroglycerin (10/18/20 02:48) Heparin (Interactive Project Manager) (Heparin (Interactive Project Manager)) (10/18/20 02:48) Eptifibatide Bolus (Integrilin Bolus) (10/18/20 03:04) Nicardipine Iv (Cardene I.V.) (10/18/20 03:10) Ns (Ivpb) (Sodium Chloride 0.9%) (10/18/20 03:10) Medications Given in ED Current Medications Medications Dose Ordered Sig/Timothy Route Start Time Stop Time Status Last Admin Dose Admin Nitroglycerin 0.5 inch ONCE ONCE TOP 10/18/20 02:30 10/18/20 02:31 DC 10/18/20 02:32 0.5 INCH Ondansetron HCl 4 mg ONCE ONCE IVP 10/18/20 02:30 10/18/20 02:31 DC 10/18/20 02:33 4 MG Vital Signs/I&O 10/18/20 02:20 O2 Delivery Room Air Progress Progress Note : Progress Note GIVEN ZOFRAN FOR NAUSEA GIVEN MORPHINE WITH MUCH IMPROVEMENT IN PAIN--PT RATES PAIN 3-4/10 PT TALKING, TRYING TO CALL PEOPLE ON PHONE NO DETERIORATION IN PT'S CONDITION DURING ER STAY Initial ECG Impression Date: Oct 18, 2020 Initial ECG Impression Time: 02:22 Initial ECG Rate: 92 Initial ECG Rhythm: Normal Sinus Initial ECG Impression: Acute HI (INFERIOR) Diagnostic Imaging Comments CXR--NO ACUTE PROCESS, PENDING RADIOLOGIST REVIEW Reviewed: Reviewed by Me Departure Communication (Admissions) Family Conversation MULTIPLE ATTEMPTS BY MYSELF AND RN TO CONTACT MULTIPLE MEMBERS OF PT'S FAMILY--INCLUDING HER AND CHILDREN--, WITH NUMBERS FROM PT'S PHONE--ALL WITH NO ANSWER AND UNABLE TO LEAVE MESSAGES [id number]--PAGED/SPOKE WITH DR. FONTANA, SPEECH INSTRUCTOR SERVICE ATTENDANT. ADVISED TO CALL IN PEDIATRIC DIETICIAN. NO ADDITIONAL ORDERS AT THIS TIME. PLUG STITCHER NOTIFIED. 0257--CARDIAC CATH TEAM HERE TO TAKE PT Impression Primary Impression: Acute ST elevation myocardial infarction (STEMI) of inferior wall Additional Impressions: Leukocytosis NIDDM HTN (hypertension) Non-compliance Current smoker Disposition: ADMITTED INPATIENT (TO PEDIATRIC DIETICIAN) Condition: Improved Admissions Decision to Admit Reason: Admit from ER (General) (TO PEDIATRIC DIETICIAN) Decision to Admit/Date: Oct 18, 2020 Time/Decision to Admit Time: 02:18 Departure-Patient Inst. Referrals: POP GUAN MD (PCP/Family) Primary Care Physician ELVIA ARCHULETA DO Oct 18, 2020 03:08
[2020-10-18] MEDS ORDERED: niCARdipine 25 MG/10 ML (CARDENE) AMP IV ONE (03:10)
[2020-10-18] MEDS ORDERED: NS (IVPB) 250 ML ONE (03:10)
--- NOTE | 2020-10-18 04:39 | Cardiology History & Physical ---
HPI-Cardiology Cardiology H&P Date of Admission 10-18-20 Primary Care Physician Augustina Alfaro MD Attending Physician Gisselle Osborn MD, MA [facility] Consulting Physician [facility] CC: Chest pain HPI 55 yo woman with onset of chest pain an hour prior to presentation to ER, diagnosed with ac STEMI of the inf wall. Pain midsternal and L parasternal, severe, associated with diaphoresis, radiating to the back, w/o aggravating or relieving factors, never experienced before. Chronic exertional shortness of breath. No palp or syncope. No swelling. She underwent emergency card cath and cor intervention (see below) Review of Systems-Cardiology Review of Systems Constitutional: malaise; No weight loss, No weight gain Eyes: No vision change Ears/Nose/Throat: No ear discharge, No nasal drainage, No recent hearing loss Respiratory: As described under HPI Cardiovascular: As described under HPI Gastrointestinal: No diarrhea; nausea; No vomiting Genitourinary: No dysuria, No hematuria, No urine frequency changes Musculoskeletal: No back pain, No joint pain Skin: No rash, No ulcerations Psychiatric/Neurological: No seizure, No focal weakness, No syncope Hematologic: No bleeding abnormalities PSH-Bdlhlj-Rnnpxb Hx Patient Social History Smoking Status: Current Everyday Smoker 2nd Hand Smoke Exposure: Yes Immunizations Up To Date Tetanus Booster (TDap): Less than 5yrs Date of Pneumonia Vaccine: Apr 06, 2011 Date of Influenza Vaccine: Apr 05, 2010 Past Medical History PMH As described under Assessment. Family Medical History Family History: Diabetes mellitus 19 FATHER 19 MOTHER FH: HTN (hypertension) 19 FATHER 19 MOTHER FH: atrial fibrillation 19 FATHER FH: heart attack 19 FATHER 19 MOTHER FH: renal failure 19 FATHER FHx: chronic obstructive pulmonary disease 19 FATHER Allergies and Home Medications Allergies Coded Allergies: No Known Drug Allergies (Verified , 10/22/08) Home Medications Aspirin 81 Mg Tablet.dr, 81 MG PO HS, (Reported) Atorvastatin Calcium 40 Mg Tablet, 40 MG PO HS, (Reported) Biotin 1,000 Mcg Tablet, 2,000 MCG PO HS, (Reported) Clopidogrel Bisulfate 75 Mg Tablet, 75 MG PO HS, (Reported) Diphenhydramine HCl 25 Mg Capsule, 25 MG PO HS, (Reported) Furosemide 20 Mg Tablet, 20 MG PO DAILY PRN for SWELLING, (Reported) Lisinopril 5 Mg Tablet, 5 MG PO HS, (Reported) Metoprolol Succinate 25 Mg Tab.er.24h, 25 MG PO HS, (Reported) Nitroglycerin 0.4 Mg Tab.subl, 0.4 MG SL UD PRN for CHEST PAIN, (Reported) Pantoprazole Sodium 40 Mg Tablet.dr, 40 MG PO HS, (Reported) Potassium Chloride 10 Meq Tab.er.prt, 10 MEQ PO DAILY PRN for WHEN TAKING FUROSEMIDE, (Reported) Prednisone 20 Mg Tab, 40 MG PO DAILY Prescribed by: NATHAN DOLL on 07/29/20 2629 Patient Home Medication List Home Medication List Reviewed: Yes Physical Exam-Cardiology Physical Exam Vital Signs/I&O 10/18/20 10/18/20 10/18/20 02:20 02:20 02:57 Temp 36.6 36.6 Pulse 96 87 Resp 18 20 B/P (MAP) 166/91 (116) 153/89 Pulse Ox 95 96 O2 Delivery Room Air Room Air Room Air Capillary Refill : Less Than 3 Seconds Constitutional: AAO x 3, well-developed, well-nourished HEENT: PERRL, EOMI, hearing is well preserved Neck: carotid pulses are 2 + bilaterally, with good upstrokes Respiratory: No accessory muscle use; other (good bilateral air entry) Cardiovascular: regular rate-rhythm, S1 and S2, systolic murmur (soft JENNIFER at card base) Gastrointestinal: No tender; soft; No guarding, No rebound; audible bowel sounds Extremities: No clubbing, No cyanosis, No significant edema Neurologic/Psychiatric: oriented x 3, other (moves all limbs equally) Skin: No rash on exposed areas, No ulcerations on exposed areas Data Review Labs Laboratory Tests 10/18/20 02:24: White Blood Count 22.3H, Red Blood Count 5.44H, Hemoglobin 15.7, Hematocrit 48, Mean Corpuscular Volume 87, Mean Corpuscular Hemoglobin 29, Mean Corpuscular Hemoglobin Concent 33, Red Cell Distribution Width 12.8, Platelet Count 334, Mean Platelet Volume 10.1, Immature Granulocyte % (Auto) 1, Neutrophils (%) (Auto) 82H, Lymphocytes (%) (Auto) 13, Monocytes (%) (Auto) 4, Eosinophils (%) (Auto) 0, Basophils (%) (Auto) 1, Neutrophils # (Auto) 18.2H, Lymphocytes # (Auto) 3.0, Monocytes # (Auto) 0.8, Eosinophils # (Auto) 0.0, Basophils # (Auto) 0.1, Immature Granulocyte # (Auto) 0.1, Neutrophils % (Manual) 80, Lymphocytes % (Manual) 18, Monocytes % (Manual) 2, Blood Morphology Comment NORMAL, Prothrombin Time 13.5, INR Comment 1.0, Activated Partial Thromboplast Time 23L, D-Dimer < 0.27, Sodium Level 136, Potassium Level 3.7, Chloride Level 100, Carbon Dioxide Level 19L, Anion Gap 17H, Blood Urea Nitrogen 8, Creatinine 0.75, Estimat Glomerular Filtration Rate > 60, BUN/Creatinine Ratio 11, Glucose Level 252H, Calcium Level 9.7, Corrected Calcium 9.4, Magnesium Level 1.8, Total Bilirubin 0.6, Aspartate Amino Transf (AST/SGOT) 17, Alanine Aminotransferase (ALT/SGPT) 16, Alkaline Phosphatase 89, Total Creatine Kinase 64, Creatine Kinase MB 1.1, Myoglobin 29.2, Troponin I < 0.028, B-Type Natriuretic Peptide 37.1, Total Protein 8.0, Albumin 4.4, Amylase Level 56, Lipase 15 Laboratory Tests 10/18/20 02:24 A/P-Cardiology Assessment/Admission Diagnosis Ac inf STEMI treated with primary PCI (see below) CAD - H/o RCA stent (proximal 3.5 mm and midvessel 2.5 mm lobito) done at [facility] several years ago - Ac inf wall STEMI on 10/18/20 - Card cath on 10/18/20: 95-99% instent stenosis and thrombus in the more distal stent that is in the the mid RCA, treated with balloon angioplasty with good results, left cor system has mild plaques, LVEDP 23 mmHg, LVEF 50%, posterobasal hypokinesis Hyperlipidemia, by history Chronic tobacco use (smokes 1 ppd) Leucocytosis at time of admission of 10-18-20 Admission Status: Inpatient Order (span 2 midnights) Reason for Inpatient Admission: Ac STEMI Discussion and Recomendations * DAPT * BB and RENÉE-inhib if bp tolerates * Statin * Advised to quit smoking * Medical consultation for leucocytosis * Echo * Further decisions to be based on hosp course Clinical Quality Measures AMI/AHF: ASA po Prior to arrival: Yes (325MG ASA PER CC EMS ) GISSELLE OSBORN MD FACP FACC CCDS Oct 18, 2020 04:39
[2020-10-18] MEDS ORDERED: PATIENT MAY USE OWN MEDS, ALL PO SCH (05:00)
[2020-10-18] MEDS ORDERED: morphine INJ 10 MG/ML 1ML (SYR OR VIAL) IVP PRN (05:00)
[2020-10-18] MEDS ORDERED: NS IV 1000 ML 1,000 ML IV SCH (05:00)
[2020-10-18] MEDS ORDERED: ACETAMINOPHEN 325 MG TABLET PO PRN (05:00)
--- NOTE | 2020-10-18 05:10 | Cardiac Procedure Note-CS/ASA ---
Pre-Procedure Note Pre-Op Procedure Note H&P Reviewed The H&P was reviewed, patient examined and no changes noted. Date H&P Reviewed: Oct 18, 2020 Time H&P Reviewed: 02:40 Conscious Sedation Pre-Proced Time 02:40 ASA Score 4 For ASA 3 and 4: Consider anesthesia and medical clearance. Also, for patients with a history of failed moderate sedation consider anesthesia. Airway Lungs Heart ASA score ASA 1: a normal healthy patient ASA 2: a patient with a mild systemic disease (mid diabetes, controlled hypertension, obesity ASA 3: a patient with a severe systemic disease that limits activity (angina, COPD, prior Myocardial infarction) ASA 4: a patient with an incapacitating disease that is a constant threat to life (CHF, renal failure) ASA 5: a moribund patient not expected to survive 24 hrs. (ruptured aneurysm) ASA 6: a declared brain- patient whose organs are being harvested. For emergent operations, add the letter E after the classification Mallampati Classification Grade 2 Sedation Plan Analgesia, Amnesia, Plan communicated to team members, Discussed options with patient/fam, Discussed risks with patient/fam The patient is an appropriate candidate to undergo the planned procedure, sedation, and anesthesia. The patient immediately re-assessed prior to indication. AMBROSIO FONTANA MD FACP FAC CCDS Oct 18, 2020 05:10
[2020-10-18 05:35] LABS: BILIRUBIN,URINE NEGATIVE (NEGATIVE); CLARITY,URINE CLEAR; COLOR,URINE YELLOW; GLUCOSE, URINE (UA) NEGATIVE (NEGATIVE); KETONES,URINE TRACE (NEGATIVE); LEUKOCYTE ESTERASE ,URINE NEGATIVE (NEGATIVE); NITRITE,URINE NEGATIVE (NEGATIVE); PROTEIN,URINE TRACE (NEGATIVE)
[2020-10-18 05:41] LABS: BACTERIA,URINE NEGATIVE /HPF
--- NOTE | 2020-10-18 05:44 | CARDIAC CATHETERIZATION ---
DATE OF SERVICE: 10/18/2020 CARDIAC CATHETERIZATION AND CORONARY INTERVENTION REPORT The patient is a 55-year-old lady with a history of coronary artery disease. She has had stenting of the right coronary artery several years ago at [facility]. She is known to have two stents. The proximal stent is a 3.5 mm stent. The more distal stent is a 2.5 mm stent. She presented with acute ST elevation myocardial infarction. Emergency cardiac catheterization was carried out after having obtained an informed consent for cardiac catheterization and possible ad hoc coronary intervention from her. DESCRIPTION OF PROCEDURE: She was brought to the cardiac catheterization laboratory. Right groin was prepared and draped in the usual sterile fashion. 1% Lidocaine was used for local anesthesia. Modified Seldinger technique was used to advance a 6-Greenlandic sheath in the right femoral artery. We carried out diagnostic angiography of the right coronary artery and then proceeded with percutaneous intervention to the right coronary artery that is described below. Subsequently, we used a 6-Greenlandic JL4 catheter for left coronary angiography and a 6-Greenlandic pigtail catheter for left heart catheterization and left ventricular angiography. At the end of the procedure, the sheath was sutured in place and the patient was transferred to the floor for manual sheath removal. PERCUTANEOUS INTERVENTION TO THE RIGHT CORONARY: The right coronary artery was exhibiting 95 to 99% stenosis in the proximal portion of the more distal right coronary artery stent. Flow distally was KRISTI 1. We carried out percutaneous intervention. This was a difficult intervention. We used multiple catheters to try and obtain good guide catheter support. No guide catheter provided good support, but we were able to finally carry out intervention with a JR4 guide catheter with side holes. We used multiple wires. The vessel was tortuous and it was extremely difficult to cross the lesion in the more distal of the two stents in the right coronary artery. Finally, we were able to cross with a Choice PT Graphix wire and the tip was placed in a distal posterolateral branch. We were able to carry out balloon angioplasty at the site of 95% to 99% stenosis in the proximal portion of the more distal stent and we also carried out balloon angioplasty and approximately 70% stenosis that was just distal to the distal edge of the stent. The distal lesion was reduced to less than 50%. The proximal lesion improved to approximately 70%. We removed this balloon and then carried out further balloon angioplasty in the proximal and the lesion that was in the proximal portion of the more distal stent with a 2.75 x 20 mm balloon. This resulted in good results. There was no significant residual stenosis. Flow throughout the vessel improved to KRISTI 3. She tolerated the procedure well. HEMODYNAMICS: Left ventricular end-diastolic pressure following coronary angiography was 23 mmHg. There is no significant pressure gradient on pullback across the aortic valve. Ascending aortic pressure was 149/84 with a mean of 111 mmHg. CORONARY ANGIOGRAPHY: Left main coronary artery is free of significant disease. Left anterior descending and left circumflex arteries have mild plaques. Right coronary artery is large and dominant. There are two stents in the right coronary. The proximal stent is patent and does not exhibit significant disease. The distal stent had 95 to 99% stenosis in its proximal portion and this was associated with some thrombus. Successful balloon angioplasty was carried out to this lesion that reduced the stenosis to less than 10% residual. LEFT VENTRICULAR ANGIOGRAPHY: Left ventricular angiography was carried out in the right anterior oblique projection. Global left ventricular systolic function is well preserved. There is posterobasal hypokinesis. Left ventricular ejection fraction approximately 50%. CONCLUSIONS: 1. Coronary artery disease primarily consisting of 95 to 99% in-stent restenosis in the more distal of two previously placed right coronary artery stents to which successful balloon angioplasty was carried out with reduction of stenosis to less than 10% and improvement of antegrade flow from KRISTI 1 to KRISTI 3. The right coronary artery is dominant. Other coronary vessels have mild disease. 2. Elevated left ventricular end-diastolic pressure. 3. Well preserved global left ventricular systolic function with posterobasal hypokinesis and left ventricular ejection fraction approximately 50%. DISCUSSION AND RECOMMENDATIONS: We are initiating dual antiplatelet therapy. We will treat with beta-blockers and RENÉE inhibitors, and statins. We have advised immediate and complete smoking cessation. Job ID: [id number] DocumentID: [id number] Dictated Date: 10/18/2020 05:09:06 Field Supervisor Date: 10/18/2020 05:43:53 Dictated By: AMBROSIO FONTANA MD, MA, FACP, FACC,
[2020-10-18 05:47] LABS: AMPHETAMINE SCREEN, URINE NEGATIVE (NEGATIVE); BARBITURATE SCREEN URINE NEGATIVE (NEGATIVE); BENZODIAZEPINES SCREEN URINE NEGATIVE (NEGATIVE); CANNABINOID SCREEN, URINE NEGATIVE (NEGATIVE); COCAINE SCREEN URINE NEGATIVE (NEGATIVE); METHADONE STAT NEGATIVE (NEGATIVE); METHAMPHETAMINE SCREEN URINE S NEGATIVE (NEGATIVE); OPIATE SCREEN URINE POSITIVE (NEGATIVE); OXYCODONE STAT NEGATIVE (NEGATIVE); PROPOXYPHENE STAT NEGATIVE (NEGATIVE); TRICYCLIC ANTIDEPRESSANTS SCRE NEGATIVE (NEGATIVE)
[2020-10-18] MEDS ORDERED: ATROPINE INJ 0.4 MG/ML SDV ONE (05:54)
[2020-10-18] MEDS: KCL 20 MEQ TAB (K-DUR) PO SCH (05:57)
[2020-10-18] MEDS: inSUlin ASPART (NovoLOG) 1 UNIT/0.01 ML (CHARGE PER UNIT) SQ SCH ×4 (05:57→21:03)
[2020-10-18] MEDS: POTASSIUM CL 10MEQ/50ML IVPB 50 ML IV SCH (05:57)
[2020-10-18] MEDS: MAGNESIUM 1 GM/100 ML IVPB 100 ML IV SCH (05:57)
--- NOTE | 2020-10-18 07:58 | Diagnostic Imaging Report ---
INDICATION: Chest pain COMPARISON: 07/29/2020 TECHNIQUE: Single radiograph of the chest dated 10/18/2020 FINDINGS: The cardiac silhouette is within normal limits in size. No significant pulmonary vascular congestion. The lungs are clear. No pleural effusion. No pneumothorax. No acute osseous abnormality. IMPRESSION: No acute cardiopulmonary abnormality. Dictated by: Dictated on workstation # [id number]
[2020-10-18] MEDS: lisINopril 10 MG (PRINIVIL) TABLET PO SCH (08:22)
[2020-10-18] MEDS: ASPIRIN 81 MG CHEW (CHILDREN'S ASA) PO SCH (08:22)
[2020-10-18] MEDS: meTOproloL SUCCINATE 50 MG (TOPROL XL) TAB PO SCH (08:22)
[2020-10-18] MEDS: CLOPIDOGREL 75 MG (PLAVIX) TABLET PO SCH (08:22)
[2020-10-18] MEDS: ENOXAPARIN 40 MG/0.4 ML (LOVENOX) SYR SC SCH (13:06)
[2020-10-19 03:09] LABS: BASOPHILS # (AUTO) 0.1 10^3/uL (0.0-0.1); BASOPHILS % (AUTO) 1 % (0-10); EOSINOPHILS # (AUTO) 0.1 10^3/uL (0.0-0.3); EOSINOPHILS % (AUTO) 1 % (0-10); HEMATOCRIT 42 % (35-52); HEMOGLOBIN 13.8 g/dL (11.5-16.0); LYMPHOCYTES # (AUTO) 3.1 10^3/uL (1.0-4.0); LYMPHOCYTES % (AUTO) 31 % (12-44); MEAN CORPUSCULAR HEMOGLOBIN 29 pg (25-34); MEAN CORPUSCULAR HGB CONC 33 g/dL (32-36); MEAN CORPUSCULAR VOLUME 87 fL (80-99); MONOCYTES % (AUTO) 10 % (0-12); NEUTROPHILS # (AUTO) 5.6 10^3/uL (1.8-7.8); NEUTROPHILS % (AUTO) 56 % (42-75); PLATELET COUNT 243 10^3/uL (130-400)
[2020-10-19 03:35] LABS: BUN/CREATININE RATIO 17; CALCIUM 9.1 MG/DL (8.5-10.1); CARBON DIOXIDE 23 MMOL/L (21-32); CHLORIDE 106 MMOL/L (98-107); CREATININE SERUM 0.64 MG/DL (0.60-1.30); GFR ESTIMATED > 60; GLUCOSE 152 MG/DL (70-105); MAGNESIUM 1.9 MG/DL (1.6-2.4); PHOSPHORUS 3.2 MG/DL (2.3-4.7); POTASSIUM 3.9 MMOL/L (3.6-5.0); SODIUM 140 MMOL/L (135-145)
[2020-10-19] MEDS: inSUlin ASPART (NovoLOG) 1 UNIT/0.01 ML (CHARGE PER UNIT) SQ SCH ×4 (03:36→20:09)
[2020-10-19] MEDS: MAGNESIUM 1 GM/100 ML IVPB 100 ML IV SCH (03:36)
[2020-10-19] MEDS: KCL 20 MEQ TAB (K-DUR) PO SCH (03:36)
[2020-10-19] MEDS: POTASSIUM CL 10MEQ/50ML IVPB 50 ML IV SCH (03:36)
--- NOTE | 2020-10-19 08:14 | Diagnostic Imaging Report ---
INDICATION: Myocardial infarction, post catheterization COMPARISON: 10/18/2020 TECHNIQUE: Single radiograph chest dated 10/19/2020. FINDINGS: The cardiac silhouette is within normal limits in size. No significant pulmonary vascular congestion. The lungs are clear of focal pulmonary opacity. No pleural effusion. No pneumothorax. No acute osseous abnormality. IMPRESSION: Similar appearing examination without acute cardiopulmonary abnormality. Dictated by: Dictated on workstation # [id number]
--- NOTE | 2020-10-19 08:26 | Progress Note - Cardiology ---
Cardiology SOAP Progress Note Objective: I&O/Vital Signs 10/18/20 10/18/20 10/18/20 10/18/20 21:00 22:00 23:00 23:15 Temp 37.1 Pulse 92 87 82 Resp 35 23 23 B/P (MAP) 120/59 (79) 114/65 (81) 116/72 (87) Pulse Ox 96 95 95 O2 Delivery Nasal Cannula Nasal Cannula Nasal Cannula Nasal Cannula O2 Flow Rate 3.00 3.00 3.00 3.00 10/18/20 10/19/20 10/19/20 10/19/20 23:15 00:00 01:00 01:00 Pulse 98 80 80 Resp 38 23 B/P (MAP) 113/60 (77) 111/70 (84) Pulse Ox 93 94 98 O2 Delivery Nasal Cannula Nasal Cannula Nasal Cannula O2 Flow Rate 3.00 3.00 3.00 10/19/20 10/19/20 10/19/20 10/19/20 02:00 03:00 03:42 03:50 Temp 35.7 Pulse 79 77 Resp 21 14 B/P (MAP) 107/53 (71) 124/82 (96) Pulse Ox 97 98 94 O2 Delivery Nasal Cannula Nasal Cannula Nasal Cannula O2 Flow Rate 3.00 3.00 3.00 10/19/20 10/19/20 10/19/20 10/19/20 04:00 04:00 05:00 06:00 Temp 36.9 Pulse 82 75 77 Resp 21 21 20 B/P (MAP) 112/73 (86) Pulse Ox 88 98 96 O2 Delivery Room Air Room Air Room Air Room Air 10/19/20 07:29 Temp 36.1 10/18/20 23:59 Intake Total 1075 ml Output Total 400 ml Balance 675 ml Weight (Pounds): 176 Weight (Ounces): 0.0 Weight (Calculated Kilograms): 79.386191 Constitutional: AAO x 3, well-developed, well-nourished Respiratory: No accessory muscle use; other (good bilateral air entry) Cardiovascular: regular rate-rhythm, S1 and S2, systolic murmur (soft JENNIFER at card base) Gastrointestional: No tender; soft; No guarding, No rebound; audible bowel sounds Extremities: No clubbing, No cyanosis, No significant edema Neurologic/Psychiatric: oriented x 3, other (moves all limbs equally) Skin: No rash on exposed areas, No ulcerations on exposed areas Results/Procedures: Labs Laboratory Tests 10/18/20 10:32: Glucometer 133H 10/18/20 16:40: Glucometer 161H 10/18/20 20:58: Glucometer 183H 10/19/20 03:00: White Blood Count 10.0, Red Blood Count 4.82, Hemoglobin 13.8, Hematocrit 42, Mean Corpuscular Volume 87, Mean Corpuscular Hemoglobin 29, Mean Corpuscular Hemoglobin Concent 33, Red Cell Distribution Width 12.8, Platelet Count 243, Mean Platelet Volume 10.0, Immature Granulocyte % (Auto) 0, Neutrophils (%) (Auto) 56, Lymphocytes (%) (Auto) 31, Monocytes (%) (Auto) 10, Eosinophils (%) ( Auto) 1, Basophils (%) (Auto) 1, Neutrophils # (Auto) 5.6, Lymphocytes # (Auto) 3.1, Monocytes # (Auto) 1.0, Eosinophils # (Auto) 0.1, Basophils # (Auto) 0.1, Immature Granulocyte # (Auto) 0.0, Sodium Level 140, Potassium Level 3.9, Chloride Level 106, Carbon Dioxide Level 23, Anion Gap 11, Blood Urea Nitrogen 11, Creatinine 0.64, Estimat Glomerular Filtration Rate > 60, BUN/Creatinine Ratio 17, Glucose Level 152H, Calcium Level 9.1, Phosphorus Level 3.2, Magnesium Level 1.9 Microbiology 10/18/20 MRSA Screen - Final, Complete MRSA not isolated Laboratory Tests 10/18/20 02:24 10/19/20 03:00 Procedures NAME: [facility] REC#: [id number] PT STATUS: ADM IN : 1965 PHYSICIAN: AMBROSIO FONTANA MD, MA, FACP, FACC, FSCAI, CCDS ADMIT DATE: 10/18/20/ICU Draft Date of Exam:10/19/20 CHEST 1 VIEW, AP/PA ONLY INDICATION: Myocardial infarction, post catheterization COMPARISON: 10/18/2020 TECHNIQUE: Single radiograph chest dated 10/19/2020. FINDINGS: The cardiac silhouette is within normal limits in size. No significant pulmonary vascular congestion. The lungs are clear of focal pulmonary opacity. No pleural effusion. No pneumothorax. No acute osseous abnormality. IMPRESSION: Similar appearing examination without acute cardiopulmonary abnormality. Dictated on workstation # [id number] Dict: 10/19/20804 Trans: 10/19/20813 CV [id number] Interpreted by: ROBERTA ROSARIO MD Electronically signed by: A/P: Assessment: Ac inf STEMI treated with primary PCI (see below) CAD - H/o RCA stent (proximal 3.5 mm and midvessel 2.5 mm lobito) done at [facility] several years ago - Ac inf wall STEMI on 10/18/20 - Card cath on 10/18/20: 95-99% instent stenosis and thrombus in the more distal stent that is in the the mid RCA, treated with balloon angioplasty with good results, left cor system has mild plaques, LVEDP 23 mmHg, LVEF 50%, posterobasal hypokinesis Echocardiogram of 10-18-20 showed concentric hypertrophy. LVEF 45-50%. Hypokinesis of the basalinferior myocardium. Grade 2 diastolic dysfunction. Mod MR. PASP approx 20-25 mmHg Hyperlipidemia, by history Chronic tobacco use (smokes 1 ppd) Leucocytosis at time of admission of 10-18-20 - resolved Plan: * Continue DAPT * Continue current dose of BB and RENÉE-inhib * Statin * Advised to quit smoking * Medical consultation for leucocytosis - resolved * Increase activity today Clinical Quality Measures AMI/AHF: ASA po Prior to arrival: Yes (325MG ASA PER [facility] ) AMANDA FORBES Oct 19, 2020 08:25
[2020-10-19] MEDS: CLOPIDOGREL 75 MG (PLAVIX) TABLET PO SCH (09:02)
[2020-10-19] MEDS: meTOproloL SUCCINATE 50 MG (TOPROL XL) TAB PO SCH (09:02)
[2020-10-19] MEDS: ASPIRIN 81 MG CHEW (CHILDREN'S ASA) PO SCH (09:02)
[2020-10-19] MEDS: lisINopril 10 MG (PRINIVIL) TABLET PO SCH (09:03)
--- NOTE | 2020-10-19 10:07 | Cardiology Progress Note ---
Subjective Date Seen by Provider: Oct 19, 2020 Time Seen by Provider: 13:00 Subjective/Events-last exam Patient was seen at bedside, sitting comfortably, denied any chest pain, no fatigue, had an episode of hypotension Review of Systems General: No Chills, No Night Sweats; Fatigue; No Malaise, No Appetite, No Other HEENT: No Head Aches, No Visual Changes, No Eye Pain, No Ear Pain, No Dysphasia, No Sinus Congestion, No Post Nasal Drip, No Sore Throat, No Other Pulmonary: No Dyspnea, No Cough, No Pleuritic Chest Pain, No Other Cardiovascular: No: Chest Pain, Palpitations, Orthopnea, Paroxysmal Noc. Dyspnea, Edema, Lt Headedness, Other Objective-Cardiology Exam Last Set of Vital Signs Vital Signs 10/19/20 10/19/20 10/19/20 03:50 12:00 13:00 Temp 36.4 Pulse 79 Resp 20 B/P (MAP) 121/97 (105) Pulse Ox 84 O2 Delivery Room Air O2 Flow Rate 3.00 Capillary Refill : Less Than 3 Seconds I&O Intake and Output 10/19/20 00:00 Intake Total 1625 ml Output Total 1600 ml Balance 25 ml Intake Oral 1625 ml Output Urine Total 1600 ml # Voids 3 Daily Weight Change No General: Alert, Oriented X3, Cooperative HEENT: Atraumatic, PERRLA Neck: Supple, No JVD, No Thyromegaly Lungs: Clear to Auscultation, Normal Air Movement Heart: Regular Rate, Normal S1, Normal S2, No Murmurs Abdomen: Normal Bowel Sounds, Soft, No Tenderness, No Hepatosplenomegaly, No Masses Extremities: No Clubbing, No Cyanosis, No Edema, Normal Pulses, No Tenderness/Swelling Skin: No Rashes, No Breakdown, No Significant Lesion Neuro: Normal Gait, Normal Speech, Strength at 5/5 X4 Ext, Normal Tone, Sensation Intact Psych/Mental Status: Mental Status NL, Mood NL Results Lab Laboratory Tests 10/19/20 03:00 A/P-Cardiology Admission Diagnosis STEMI CAD HTN HLP Tobaccoism Assessment/Plan Ac inf STEMI treated with primary PCI (see below), Feeling better at this time. Continue to monitor CAD, H/o RCA stent (proximal 3.5 mm and midvessel 2.5 mm lobito) done at [facility] several years ago. Ac inf wall STEMI on 10/18/20, underwent emergent card cath on 10/18/20: 95-99% instent stenosis and thrombus in the more distal stent that is in the the mid RCA, treated with balloon angioplasty with good results, left cor system has mild plaques, LVEDP 23 mmHg, LVEF 50%, posterobasal hypokinesis. Maintained on ASA and Plavix Echocardiogram of 10-18-20 showed concentric hypertrophy. LVEF 45-50%. Hypokinesis of the basalinferior myocardium. Grade 2 diastolic dysfunction. Mod MR. PASP approx 20-25 mmHg, maintained on beta mylene, RENÉE-I Hypertension, currently hypotensive, I will decrease Toprol XL and lisinopril, Started on IV fluids. Monitor tolerance and response Hyperlipidemia, continue on statin. Chronic tobacco use (smokes 1 ppd), discussed importance of smoking cessation. Leucocytosis at time of admission of 10-18-20 - resolved, monitor as outpatient Patient was seen and evaluated with Barbara, was emotional and complaining of fatigue, blood pressure was better. Had another episode of hypotension responded to IV fluid. Feeling better, I will continue monitoring, events since admission were reviewed, we discussed long-term aspirin and Plavix at this point. Clinical Quality Measures AMI/AHF: ASA po Prior to arrival: Yes (325MG ASA PER [facility] ) Supervisory-Addendum Brief Supervisory Addendum Participated in pt care: history, MDM, physical Personally performed: exam, history, MDM Care discussed with: BARBARA LISA Oct 19, 2020 10:07 NATHANIEL GORDILLO MD Oct 19, 2020 15:15
[2020-10-19] MEDS ORDERED: NS IV 1000 ML 1,000 ML IV SCH (10:45)
[2020-10-19] MEDS: ENOXAPARIN 40 MG/0.4 ML (LOVENOX) SYR SC SCH (10:56)
[2020-10-19] MEDS ORDERED: FLUT9.9S NS (11:21)
[2020-10-19] MEDS ORDERED: ASPI-1238 PO (11:21)
[2020-10-19] MEDS ORDERED: CETI10TA17 PO (11:21)
[2020-10-20 03:17] LABS: BASOPHILS # (AUTO) 0.1 10^3/uL (0.0-0.1); BASOPHILS % (AUTO) 1 % (0-10); EOSINOPHILS # (AUTO) 0.3 10^3/uL (0.0-0.3); EOSINOPHILS % (AUTO) 3 % (0-10); HEMATOCRIT 40 % (35-52); HEMOGLOBIN 12.9 g/dL (11.5-16.0); LYMPHOCYTES # (AUTO) 3.7 10^3/uL (1.0-4.0); LYMPHOCYTES % (AUTO) 40 % (12-44); MEAN CORPUSCULAR HEMOGLOBIN 29 pg (25-34); MEAN CORPUSCULAR HGB CONC 32 g/dL (32-36); MEAN CORPUSCULAR VOLUME 89 fL (80-99); MEAN PLATELET VOLUME 10.4 fL (9.0-12.2); MONOCYTES % (AUTO) 11 % (0-12); NEUTROPHILS # (AUTO) 4.2 10^3/uL (1.8-7.8); NEUTROPHILS % (AUTO) 45 % (42-75); PLATELET COUNT 226 10^3/uL (130-400); WHITE BLOOD COUNT 9.3 10^3/uL (4.3-11.0)
[2020-10-20 03:31] LABS: BUN/CREATININE RATIO 17; CALCIUM 9.3 MG/DL (8.5-10.1); CARBON DIOXIDE 23 MMOL/L (21-32); CHLORIDE 108 MMOL/L (98-107); CREATININE SERUM 0.64 MG/DL (0.60-1.30); GFR ESTIMATED > 60; GLUCOSE 140 MG/DL (70-105); MAGNESIUM 1.9 MG/DL (1.6-2.4); PHOSPHORUS 3.6 MG/DL (2.3-4.7); POTASSIUM 3.9 MMOL/L (3.6-5.0); SODIUM 141 MMOL/L (135-145)
[2020-10-20] MEDS: inSUlin ASPART (NovoLOG) 1 UNIT/0.01 ML (CHARGE PER UNIT) SQ SCH (04:54)
[2020-10-20] MEDS ORDERED: PANT40SU PO (06:39)
[2020-10-20] MEDS ORDERED: ATOR40TA PO (06:39)
[2020-10-20] MEDS ORDERED: CLOP75TA28 PO (06:39)
--- NOTE | 2020-10-20 06:40 | Discharge Inst-Post CATH ---
Discharge Inst-CATH/EP Problems Reviewed?: Yes Post Cardiac Cath/EP D/C Inst Follow Up/Plan Appointment with Dr Barksdale in 2 weeks <b>CARDIAC CATH/EP PROCEDURE DISCHARGE INSTRUCTIONS</b> ACTIVITY * Go Home directly and rest. * Limit activity of the leg (or wrist if it was used) for 7 days including aerobics, swimming, jogging, bicycling, etc. * Restrict stair-climbing for 7 days if possible, if not, climb up with your non-cath leg, then bring together on the same step. * Avoid lifting, pushing, pulling or excessive movement of the affected extremity for 7 days. * Customary sexual activity may be resumed after 2 days-use caution not to use a position that strains or causes pain to the affected extremity. * No driving for 24 hours. * NO SMOKING. * Avoid straining for bowel movements for 7 days. * Gentle walking on level ground is allowed. * Returning to work will depend on the type of procedure and the results. Your doctor will discuss this with you. CALL YOUR DOCTOR FOR ANY OF THE FOLLOWING: *If bleeding from the puncture site occurs- Apply gentle pressure to site with clean cloth and call your doctor or EMS. * If a knot or lump forms under the skin, increases in size, or causes pain. * If bruising appears to be worsening or moving further down your leg instead of disappearing. * Temperature above 101 F. CARE OF YOUR GROIN INCISION; * Bruising or purple discoloration of the skin near the puncture site is common. * You may shower only, no bathtub bathing for 5 days. Be careful to avoid slipping as your leg may feel stiff. * If a closure device was used on your femoral artery, please see the attached guide regarding care of the device and your leg. * Leave dressing on FOR 24 hours. CARE OF YOUR WRIST INCISION; * Bruising or purple discoloration of the skin near the puncture site is common. * You may shower. * DO NOT submerge wrist. * Leave dressing on FOR 24 hours. NATHANIEL BARKSDALE MD Oct 20, 2020 06:40
--- NOTE | 2020-10-20 08:17 | Cardiology Discharge Summary ---
Discharge Summary Hospital Course Problems Reviewed?: Yes Hospital Course Date of Admission: Oct 18, 2020 at 04:43 Admission Diagnosis : Family Physician/Provider: Augustina Alfaro MD Date of Discharge: 10/20/20 Discharge Diagnosis: [Acute ST elevation myocardial infarction Coronary artery disease Hyperlipidemia Hypertension] Hospital Course: [ Ac inf STEMI treated with primary PCI, Feeling better at this time. Continue to monitor CAD, H/o RCA stent (proximal 3.5 mm and midvessel 2.5 mm lobito) done at [facility] several years ago. Ac inf wall STEMI on 10/18/20, underwent emergent card cath on 10/18/20: 95-99% instent stenosis and thrombus in the more distal stent that is in the the mid RCA, treated with balloon angioplasty with good results, left cor system has mild plaques, LVEDP 23 mmHg, LVEF 50%, posterobasal hypokinesis. Maintained on ASA and Plavix Echocardiogram of 10-18-20 showed concentric hypertrophy. LVEF 45-50%. Hypokinesis of the basalinferior myocardium. Grade 2 diastolic dysfunction. Mod MR. PASP approx 20-25 mmHg, maintained on beta mylene, RENÉE-I Hypertension, multiple episode of hypotension, I discontinue Toprol and lisinopril and will monitor her blood pressure as an outpatient Hyperlipidemia, continue on statin. Chronic tobacco use (smokes 1 ppd), discussed importance of smoking cessation. Leucocytosis at time of admission of 10-18-20 - resolved, monitor as outpatient ] Labs and Pending Lab Test: Laboratory Tests 10/19/20 10:20: Glucometer 170H 10/19/20 15:15: Glucometer 201H 10/19/20 20:06: Glucometer 171H 10/20/20 02:45: White Blood Count 9.3, Red Blood Count 4.53, Hemoglobin 12.9, Hematocrit 40, Mean Corpuscular Volume 89, Mean Corpuscular Hemoglobin 29, Mean Corpuscular Hemoglobin Concent 32, Red Cell Distribution Width 12.7, Platelet Count 226, Mean Platelet Volume 10.4, Immature Granulocyte % (Auto) 0, Neutrophils (%) (Auto) 45, Lymphocytes (%) (Auto) 40, Monocytes (%) (Auto) 11, Eosinophils (%) (Auto) 3, Basophils (%) (Auto) 1, Neutrophils # (Auto) 4.2, Lymphocytes # (Auto) 3.7, Monocytes # (Auto) 1.0, Eosinophils # (Auto) 0.3, Basophils # (Auto) 0.1, Immature Granulocyte # (Auto) 0.0, Sodium Level 141, Potassium Level 3.9, Chloride Level 108H, Carbon Dioxide Level 23, Anion Gap 10, Blood Urea Nitrogen 11, Creatinine 0.64, Estimat Glomerular Filtration Rate > 60, BUN/Creatinine Ratio 17, Glucose Level 140H, Calcium Level 9.3, Phosphorus Level 3.6, Magnesium Level 1.9 Microbiology 10/18/20 MRSA Screen - Final, Complete MRSA not isolated Home Meds Active Protonix (Pantoprazole Sodium) 40 Mg Granpkt.dr 40 Mg PO DAILY Lipitor (Atorvastatin Calcium) 40 Mg Tablet 40 Mg PO HS Clopidogrel (Clopidogrel Bisulfate) 75 Mg Tablet 75 Mg PO DAILY Reported Cetirizine HCl 10 Mg Tablet 10 Mg PO DAILY Aspirin EC (Aspirin) 81 Mg Tablet.dr 162 Mg PO DAILY TAKES 2 (81MG) TABS Flonase Allergy Relief (Fluticasone Propionate) 9.9 Ml [place].susp 2 [place] NS DAILY PRN Assessment/Pt DC Instructions Arrangement for follow-up as an outpatient Discharge Diet: No Restrictions, Low Fat/Low Cholesterol, Cardiac Diet Orders-Post D/C & Referrals Pneu Vac Indicated: Yes Discharge Physical Examination Allergies: Coded Allergies: No Known Drug Allergies (Verified , 10/22/08) General Appearance: No Apparent Distress, WD/WN HEENT: PERRL/EOMI, TMs Normal, Normal ENT Inspection, Pharynx Normal Respiratory: Chest Non Tender, Lungs Clear, Normal Breath Sounds, No Accessory Muscle Use, No Respiratory Distress Cardiovascular: Regular Rate, Rhythm, No Edema, No Gallop, No JVD, No Murmur, Normal Peripheral Pulses Gastrointestinal: Normal Bowel Sounds, No Organomegaly, No Pulsatile Mass, Non Tender, Soft Extremity: Normal Capillary Refill, Normal Inspection, Normal Range of Motion, Non Tender, No Calf Tenderness, No Pedal Edema Skin: Normal Color, Warm/Dry Clinical Quality Measures AMI/AHF: ASA po Prior to arrival: Yes (325MG ASA PER [facility] ) NATHANILE GORDILLO MD Oct 20, 2020 08:16
[2020-10-20] MEDS: CLOPIDOGREL 75 MG (PLAVIX) TABLET PO SCH (09:14)
[2020-10-20] MEDS: ASPIRIN 81 MG CHEW (CHILDREN'S ASA) PO SCH (09:14)
== END 2020-10-20 09:55 | disposition home or self-care (01) | DRG 250 ==
LOC: EDUNIT# 02:17 → ER 02:19 → ICU 04:43
PROVIDERS: ADMIT Internal Medicine Cardiovascular Disease; ATTEND Internal Medicine Cardiovascular Disease
PROC: 02703ZZ Dilation of Coronary Artery, One Artery, Percutaneous Approach (ICD-10-PCS; principal; 2020-10-18)
PROC: 4A023N7 Measurement of Cardiac Sampling and Pressure, Left Heart, Percutaneous Approach (ICD-10-PCS; 2020-10-18)
PROC: B2111ZZ Fluoroscopy of Multiple Coronary Arteries using Low Osmolar Contrast (ICD-10-PCS; 2020-10-18)
PROC: B2151ZZ Fluoroscopy of Left Heart using Low Osmolar Contrast (ICD-10-PCS; 2020-10-18)
DX: T82.855A Stenosis of coronary artery stent, initial encounter (principal); I21.19 ST elevation (STEMI) myocardial infarction involving other coronary artery of inferior wall; I42.9 Cardiomyopathy, unspecified; I25.10 Atherosclerotic heart disease of native coronary artery without angina pectoris; I11.0 Hypertensive heart disease with heart failure; I50.9 Heart failure, unspecified; I34.0 Nonrheumatic mitral (valve) insufficiency; F17.210 Nicotine dependence, cigarettes, uncomplicated; E11.9 Type 2 diabetes mellitus without complications; E78.00 Pure hypercholesterolemia, unspecified; E78.5 Hyperlipidemia, unspecified; Z91.19 Patient's noncompliance with other medical treatment and regimen; D72.829 Elevated white blood cell count, unspecified; I25.2 Old myocardial infarction; Z95.5 Presence of coronary angioplasty implant and graft; Z79.82 Long term (current) use of aspirin; Z79.52 Long term (current) use of systemic steroids; Z83.3 Family history of diabetes mellitus; Z82.49 Family history of ischemic heart disease and other diseases of the circulatory system
CPT/HCPCS: 36415; 71045; 80048; 80053; 80306; 81000; 82150; 82550; 82553; 82962; 83690; 83735; 83874; 83880; 84100; 84484; 85007; 85025; 85027; 85379; 85610; 85730; 87081; 93005; 93041; 93306; 93458